=== PATIENT | female | born 1960 | race Caucasian/White ===

== ENCOUNTER 2018-06-17 08:59 | Day surgery (SDC) | payer BC ==
[~2018-06-17 08:59] MED LIST: ACETAMINOPHEN 1,000 MG/100 ML BTL IV ONE
[2018-06-17] MEDS ORDERED: HYDROCODONE/APAP 5/325MG TABLET PO ONE (09:00)
[2018-06-17] MEDS ORDERED: LIDOCAINE 2% MDV (20MG/ML) 20ML VIAL IV ONE (09:00)
[2018-06-17] MEDS ORDERED: FENTANYL PF 100MCG/2ML VIAL IV ONE (09:00)
[2018-06-17] MEDS ORDERED: PROPOFOL 10 MG/ML VIAL IV ONE (09:00)
[2018-06-17] MEDS ORDERED: CEFAZOLIN 2 Gram 2 GM/50 ML BAG IVPB ONE (09:00)
[2018-06-17] MEDS ORDERED: MIDAZOLAM HCL 2MG/2ML VIAL IV ONE (09:00)
[2018-06-17] MEDS ORDERED: RINGERS SOLUTION,LACTATED 1,000 ML IV ONE (09:30)
[2018-06-17] MEDS ORDERED: BUPIVACAINE 0.25% W/EPI MPF 30ML VIAL SQ ONE (10:42)
[2018-06-17] MEDS ORDERED: CEFAZOLIN 1G VIAL IVPB ONE (10:42)
[2018-06-17] MEDS ORDERED: RINGERS SOLUTION,LACTATED 400 ML IV ONE (10:53)
[2018-06-17] MEDS ORDERED: HYDROCODONE/APAP 5/325MG TABLET PO PRN (11:09)
--- NOTE | 2018-06-18 09:50 | Operative Note ---
DATE OF SURGERY: 06/17/2018 SURGEON: Americo Amos DO PREOPERATIVE DIAGNOSIS: Scalp mass x5. POSTOPERATIVE DIAGNOSIS: Scalp mass x5. OPERATION: Excision of scalp mass x5. INDICATION: The patient is a 57-year-old female with multiple subcutaneous masses on her scalp. These all are about 3 cm into the subcu. These all have the clinical appearance of sebaceous cyst. She desired excision. Risks, benefits, and alternatives were discussed. Risks include bleeding, infection, and recurrence. She understood this fully. Thereafter, consent was signed and questions answered. PROCEDURE: The patient was taken to the operating room and placed in a supine position. She was rotated into a left lateral position. Her scalp was prepped and draped in the usual sterile fashion. Her hair was spread a bit with baby shampoo as well. The area over each mass was anesthetized with a total of 2 mL of 0.25% Sensorcaine with epinephrine. Incision was made, carried down to a large sebaceous cyst. She had 5 of these in total. These were all excised in total without rupture. Wounds were closed with 3-0 Prolene in interrupted fashion. She tolerated the procedure well. CC: JACOB Diaz
== END 2018-06-17 11:38 | disposition home or self-care (01) ==
LOC: SUR 08:59
PROVIDERS: ATTEND Surgery
DX: L72.11 Pilar cyst (principal); I10 Essential (primary) hypertension; E11.9 Type 2 diabetes mellitus without complications
CPT/HCPCS: J0690; J7120